=== PATIENT | female | born 1985 | race Caucasian/White ===

== ENCOUNTER 2019-10-28 08:58 | Emergency (ER) | payer SELFPAY ==
[2019-10-28 09:11] VITALS: BP 107/82; PULSE 94; RESP 18; TEMP 37.1; O2SAT 99; BMI 23.4
--- NOTE | 2019-10-28 09:14 | W.ED.DENTAL ---
HPI - Dental/Oral General: Chief complaint: Dental/Oral Stated complaint: Mouth pain Time Seen by Provider: 10/28/19 09:05 Source: patient Mode of arrival: ambulatory Limitations: no limitations History of Present Illness: HPI Narrative: Patient comes in with 2-day history of left side dental pain. Patient states that for the last 2 days she has had increasing pain and discomfort to her left upper and lower jaw area. Patient denies any difficulty swallowing or breathing. Patient appears well. Patient appears in moderate pain. Review of Systems General: Reports: 10 or more systems reviewed and unremarkable except in HPI and below ENMT: Reports: mouth pain and dental pain PFS ED PFSH: Statuses (acute, chronic, etc) shown below reflect problem list status as previously entered and may not be historically accurate Social History Smoking and tobacco status: current every day smoker Physical Exam Const: COMMON NORMALS: no apparent distress and oriented x3 GENERAL APPEARANCE: cooperative HENMT: COMMON NORMALS: normocephalic, external ears normal, EAC's normal, TM's normal bilaterally and external nose normal HEAD & SCALP: normal to inspection and normocephalic FACE & SINUS: normal facial exam NOSE: external nose normal GENERAL EAR: hearing not grossly impaired EXTERNAL EAR: Yes external ears normal EXTERNAL AUDITORY CANAL: EAC's normal TYMPANIC MEMBRANE: TM's normal bilaterally MOUTH: other (redness and swelling to left upper and lower gingival, severe dental decay) THROAT: posterior oropharynx normal Eye: COMMON NORMALS: PERRL and EOMs intact bilaterally PUPIL: Yes PERRL Neck/C-Spine: COMMON NORMALS: full ROM and no lymphadenopathy Lymph: LYMPHATIC: no lymphedema noted Chest: COMMONS NORMALS: inspection of chest normal and palpation of chest normal Resp: COMMON NORMALS: normal respiratory effort and clear to auscultation bilaterally AUSCULTATION: clear to auscultation bilaterally Cardio: COMMON NORMALS: regular rate and regular rhythm RATE: regular rate RHYTHM: regular rhythm GI: COMMON NORMALS: normal to inspection, nondistended, normoactive bowel sounds and non-tender : COMMON NORMALS: Yes no CVA tenderness BLADDER/KIDNEY EXAM: Yes no CVA tenderness Back/Pelvis: COMMON NORMALS: no CVA tenderness and thoracic and lumbar spine normal to inspection Extremity: COMMON NORMALS: normal to inspection GENERAL: No edema Neuro: COMMON NORMALS: oriented x3, moves all extremities and no focal motor deficits Psych: COMMON NORMALS: mental status grossly normal and cooperative Skin: COMMON NORMALS: no rashes or lesions noted GENERAL SKIN EXAM: no rashes or lesions noted Course Vital Signs: Vital signs: Vital Signs Temperature 98.7 F 10/28/19 09:11 Pulse Rate 94 10/28/19 09:11 Respiratory Rate 18 10/28/19 09:11 Blood Pressure 107/82 10/28/19 09:11 Pulse Oximetry 99 10/28/19 09:11 MDM - Dental/Oral MDM Narrative: Medical decision making narrative: Patient comes in today with mouth pain. On exam patient has severe dental decay with erythema and swelling of the gingiva on the left upper and lower molar area. Posterior pharynx is symmetrical and clear of swelling. Sublingual area is without swelling. No cervical lymphadenopathy is noted. Airway is intact and patient manages secretions well. Differential diagnosis includes retropharyngeal abscess, Axel's angina, dental abscess, odontalgia, dental caries, periodontal disease. Reviewed exam with patient recommended treatment with good oral care, antibiotics, and pain medication. Patient reports understanding agreed to plan and need for follow-up with dentist. Discharge Plan Discharge Patient Disposition: Home, Self-Care Clinical Impression: Dental caries, Dental abscess Condition: Stable Prescriptions: New clindamycin HCl 150 mg capsule 450 mg PO BID 7 Days Qty: 42 RF: 0 Lidocaine Viscous 2 % solution 10 ml MUCOUS MEM Q3H PRN (Reason: pain) Qty: 100 RF: 0 hydrocodone-acetaminophen 5-325 mg tablet 1 tab PO Q6H PRN (Reason: pain) Qty: 7 RF: 0 Referrals: Chriss Peter FNP-C [Family Provider] - Discharge Diet: Usual diet Discharge Activity: Increase activity as tolerated Patient Instructions: Dental Abscess (ED) Activity Restrictions/Additional Instructions: Good oral care Drink plenty of water with Medications Use acetaminophen and ibuprofen for further pain relief Follow-up with dentist for definitive treatment Return to ER for difficulty breathing or swallowing, with high fever and swelling Coding Level of Care Code ED Quality Control for Prudencio Romero
[2019-10-28 09:47] VITALS: BP 104/79; PULSE 94; RESP 16; O2SAT 95
== END 2019-10-28 09:48 | disposition home or self-care (01) ==
PROVIDERS: Emergency Provider Nurse Practitioner Family; Family Provider Nurse Practitioner
DX: K04.7 Periapical abscess without sinus (principal); K02.9 Dental caries, unspecified; F17.210 Nicotine dependence, cigarettes, uncomplicated
CPT/HCPCS: 99281; 99283

== ENCOUNTER 2020-09-12 17:36 | Emergency (ER) | payer SELFPAY ==
--- NOTE | 2020-09-12 17:44 | ED_ITS ---
HPI - Syncope General: Chief Complaint: Syncope Stated Complaint: SYNCOPE Time Seen by Provider: 09/12/20 17:38 Source: patient and EMS Mode of arrival: EMS Limitations: no limitations History of Present Illness: HPI narrative: 34-year-old female is here by EMS with spouse with syncopal event. States she is feeling weak and went back to her bedroom and passed out her kids came and knocked on the EMS door which was next-door and they came over gave patient Narcan and she is since been awake and alert. She states that she did smoke some drugs earlier and was unsure exactly what it was thought it was fake weed. She states she has had a toothache. Denies any chest pain or headache patient is alert and able answer all my questions patient was given Narcan roughly an hour and a half ago. Associated symptoms: Deny abdominal pain, fever(s), headache(s) or nausea Review of Systems Const: Denies: fever(s), chills, body aches or change in appetite Eyes: Denies: blurry vision or eye discomfort ENMT: Denies: throat pain or dental pain Card: Reports: syncope Resp: Denies: dyspnea GI: Denies: abdominal pain, nausea, vomiting or diarrhea : Denies: dysuria Musc: Denies: neck pain or back pain Skin/Breast: Denies: rash Neuro: Denies: headache(s) Psych: Denies: depression Devin/Lymph: Denies: easy bruising All/Imm: Denies: urticaria Physical Exam Const: COMMON NORMALS: no acute distress, patient oriented x3 and healthy appearing GENERAL APPEARANCE: disheveled HENMT: COMMON NORMALS: normocephalic and atraumatic HEAD & SCALP: normocephalic and atraumatic OTHER: Very poor dentition with left lower molar tenderness with no abscess or trismus Eye: COMMON NORMALS: Equal, round and reactive pupils present and EOMs intact bilaterally PUPIL: Yes Equal, round and reactive pupils present Neck/C-Spine: COMMON NORMALS: full ROM and supple Chest: COMMONS NORMALS: normal inspection of the chest and normal palpation of entire chest wall Resp: COMMON NORMALS: normal respiratory effort, No retractions, No use of accessory muscles and clear to auscultation bilaterally AUSCULTATION: clear to auscultation bilaterally Cardio: COMMON NORMALS: regular rate, regular rhythm and No murmurs present (Cardio) RATE: regular rate RHYTHM: regular rhythm GI: COMMON NORMALS: Normal to inspection, nondistended, normoactive bowel sounds present, Soft to palpation, non-tender and no masses PALPATION: Yes So ft to palpation Extremity: COMMON NORMALS: normal to inspection and full ROM Neuro: COMMON NORMALS: patient oriented x3, moves all extremities and no focal motor deficits Psych: COMMON NORMALS: mental status grossly normal, Normal thought process present and cooperative THOUGHT PROCESS: Normal thought process present Skin: COMMON NORMALS: no rashes or lesions noted and no wounds GENERAL SKIN EXAM: no rashes or lesions noted Course Vital Signs: Vital signs: Vital Signs Temperature 98.1 F 09/12/20 18:01 Pulse Rate 99 09/12/20 19:12 Respiratory Rate 18 09/12/20 18:01 Blood Pressure 102/64 09/12/20 19:12 Pulse Oximetry 97 09/12/20 19:12 MDM - Syncope MDM Narrative: Medical decision making narrative: Estrellita presents after a syncopal event likely due to marijuana use. She has been awake and alert and well-appearing here. Blood work here is all normal. She has a toothache as well and we will start her on antibiotics along with Naprosyn. She is to follow-up with PCP and return if worsening. Lab Data: Labs: Lab Results 09/12/20 09/12/20 09/12/20 Range/Units 17:47 17:47 17:55 WBC 10.0 (4.0-10.0) 10^3/ uL RBC 4.14 (4.1-5.3) 10^6/u L Hgb 12.8 (11.5-15.3) g/dL Hct 39.3 (37.0-47.0) % MCV 94.9 (81-99) fL MCH 30.9 (28.0-34.0) pg MCHC 32.6 (30.0-36.0) g/dL RDW 12.9 (12.1-15.1) % Plt Count 258 (130-400) 10^3/c mm MPV 10.2 (7.4-10.4) fL Neut % (Auto) 83.9 % Lymph % (Auto) 11.4 % [place] % (Auto) 3.7 % Eos % (Auto) 0.5 % Baso % (Auto) 0.2 % Neut # (Auto) 8.38 H (1.8-7.7) 10^3/u L Lymph # (Auto) 1.1 (0.8-4.8) 10^3/u L [place] # (Auto) 0.4 (0.2-0.9) 10^3/u L Eos # (Auto) 0.1 (0.0-0.8) 10^3/u L Baso # (Auto) 0.0 (0.0-0.1) 10^3/u L Nucleated RBC % (a uto) 0 % Nucleated RBCs # 0.0 /100WBC Sodium (136-145) mmol/L Potassium (3.5-5.1) mmol/L Chloride (98-107) mmol/L Carbon Dioxide (22-29) mmol/L Anion Gap (5-19) BUN (6-20) mg/dL Creatinine (0.5-0.9) mg/dL GFR Calculation (90-130) mL/min Glucose (65-115) mg/dL Calculated Osmolal ity (285-295) mOsm/k g Calcium (8.5-10.5) mg/dL HCG, Qual Negative (Negative) Urine Opiates Scre en Negative (Negative) ng/mL Ur Barbiturates Sc reen Negative (Negative) ng/mL Ur Phencyclidine S crn Negative (Negative) ng/mL Ur Amphetamines Sc reen Negative (Negative) ng/mL U Benzodiazepines Scrn Negative (Negative) ng/mL Urine Cocaine Scre en Negative (Negative) ng/mL U Marijuana (THC) Screen Positive H (Negative) ng/mL 12// Range/Units 17:55 WBC (4.0-10.0) 10^3/ uL RBC (4.1-5.3) 10^6/u L Hgb (11.5-15.3) g/dL Hct (37.0-47.0) % MCV (81-99) fL MCH (28.0-34.0) pg MCHC (30.0-36.0) g/dL RDW (12.1-15.1) % Plt Count (130-400) 10^3/c mm MPV (7.4-10.4) fL Neut % (Auto) % Lymph % (Auto) % [place] % (Auto) % Eos % (Auto) % Baso % (Auto) % Neut # (Auto) (1.8-7.7) 10^3/u L Lymph # (Auto) (0.8-4.8) 10^3/u L [place] # (Auto) (0.2-0.9) 10^3/u L Eos # (Auto) (0.0-0.8) 10^3/u L Baso # (Auto) (0.0-0.1) 10^3/u L Nucleated RBC % (a uto) % Nucleated RBCs # /100WBC Sodium 138 (136-145) mmol/L Potassium 3.4 L (3.5-5.1) mmol/L Chloride 101 (98-107) mmol/L Carbon Dioxide 28 (22-29) mmol/L Anion Gap 12.4 (5-19) BUN 5 L (6-20) mg/dL Creatinine 0.5 (0.5-0.9) mg/dL GFR Calculation 141.2 H (90-130) mL/min Glucose 116 H (65-115) mg/dL Calculated Osmolal ity 284 L (285-295) mOsm/k g Calcium 9.4 (8.5-10.5) mg/dL HCG, Qual (Negative) Urine Opiates Scre en (Negative) ng/mL Ur Barbiturates Sc reen (Negative) ng/mL Ur Phencyclidine S crn (Negative) ng/mL Ur Amphetamines Sc reen (Negative) ng/mL U Benzodiazepines Scrn (Negative) ng/mL Urine Cocaine Scre en (Negative) ng/mL U Marijuana (THC) Screen (Negative) ng/mL EKG Data^: EKG 1: Attestation: I personally reviewed and interpreted this EKG as follows: EKG interpretation date: 09/12/20 EKG interpretation time: 18:40 Interpretation: nsr hr [address] or t wave abnormalities qrs 106 qtc 415 Discharge Plan Discharge Patient Disposition: Home Clinical Impression: Tooth ache, Syncope Condition: Stable Prescriptions: New Keflex 500 mg capsule 500 mg PO Q6H 7 Days Qty: 28 RF: 0 Naprosyn 500 mg tablet 500 mg PO BID PRN (Reason: pain) Qty: 20 RF: 0 Discharge Orders: Discharge ED (Routine); Ordered 09/12/20 Ordered By: Betty Stephenson Referrals: Chriss Peter, BUSINESS PROCESS ASSOCIATE-C [Primary Care Provider] - Discharge Diet: Advance as tolerated Discharge Activity: Resume usual activity Patient Instructions: Syncope (ED), Toothache (ED) Coding Level of Care Code ED Test Department Helper for Chg Fwd Exam Comprehensive
[2020-09-12 18:01] VITALS: BP 100/70; PULSE 107; RESP 18; TEMP 36.7; O2SAT 98; BMI 20.7
[2020-09-12] MEDS: sodium chloride 0.9% 1,000 ML 999 ML IV (18:12)
[2020-09-12 18:18] LABS: HCG Qualitative Urine. Negative (Negative)
[2020-09-12 18:19] LABS: Basophils % 0.2 %; Eosinophils # 0.1 10^3/uL (0.0-0.8); Eosinophils % 0.5 %; Hematocrit 39.3 % (37.0-47.0); Hemoglobin 12.8 g/dL (11.5-15.3); Lymphocytes # 1.1 10^3/uL (0.8-4.8); Lymphocytes % 11.4 %; Mean Corpuscular HGB Conc 32.6 g/dL (30.0-36.0); Mean Corpuscular Hemoglobin 30.9 pg (28.0-34.0); Mean Corpuscular Volume 94.9 fL (81-99); Mean Platelet Volume 10.2 fL (7.4-10.4); Monocytes # 0.4 10^3/uL (0.2-0.9); Monocytes % 3.7 %; Neutrophils # 8.38 10^3/uL (1.8-7.7); Neutrophils % 83.9 %; Nucleated Red Blood Cells % 0 %; Platelet Count 258 10^3/cmm (130-400); Red Blood Count 4.14 10^6/uL (4.1-5.3); Red Cell Distribution Width 12.9 % (12.1-15.1)
[2020-09-12 18:25] LABS: Amphetamines Screen Urine Negative (Negative); Barbiturates Screen Urine Negative (Negative); Benzodiazepines Screen Urine Negative (Negative); Cocaine Screen Urine Negative (Negative); Opiate Screen Urine Negative (Negative); PCP Screen Urine Negative (Negative); THC Screen Urine Positive (Negative)
[2020-09-12 18:55] LABS: Anion Gap 12.4 (5-19); Blood Urea Nitrogen 5 mg/dL (6-20); Calcium 9.4 mg/dL (8.5-10.5); Carbon Dioxide 28 mmol/L (22-29); Chloride 101 mmol/L (98-107); Glomerular Filtration Rate 141.2 mL/min (90-130); Glucose 116 mg/dL (65-115); Osmolality Calculated 284 mOsm/kg (285-295); Potassium 3.4 mmol/L (3.5-5.1); Sodium 138 mmol/L (136-145)
[2020-09-12 19:12] VITALS: BP 102/64; PULSE 99; O2SAT 97
== END 2020-09-12 19:26 | disposition home or self-care (01) ==
PROVIDERS: Emergency Provider Emergency Medicine; PCP Nurse Practitioner
DX: R55 Syncope and collapse (principal); K08.89 Other specified disorders of teeth and supporting structures
CPT/HCPCS: 12345; 36415; 80048; 80306; 81025; 85025; 96360; 99282; 99283; J7030

== ENCOUNTER 2025-08-04 10:18 | Emergency (ER) | payer BC, SELFPAY ==
--- OUTSIDE RECORDS SUMMARY | 2024-07-26 03:00 | XMS_ITS ---
Author Organization [facility] Address [address] [place] [address] Care Team Providers Care Flight Software Test Engineer Name Role Phone AURELIA WHITLEY Primary Care Provider Unavaila ble Aurelia Whitley Unavailable [phone] Migration, Provider Unavailable Unavailable REASON FOR VISIT EMR-Skip Encounters Encounter Location Date Provider Diagnosis Migrated_Facility 0 0 07/26/2024 Provider Migration Plan Of Treatment Medication Medication Name Sig Start Date Stop Date Notes Gabapentin 600 MG Tablet 1 Capsule Four times a Day Oral 04/02/2024 06/01/2024 buprenorphine-naloxone 8-2 mg sublingual film 1 Film Twice a Day 04/03/2024 05/03/2024 *Reord er from [facility] for eRx and Interaction Alerts* Progress Notes * Sudha MARROQUIN DDOB:[birth year] (39 yo F)Acc No.[id number]:07/26/2024 Patient: Sudha KWOK :1985 A ge:38 Y S ex:Female Address:[address] [place] [address] * Refills Stop Gabapentin Tablet, 600 MG, Oral, 1 Capsule Four times a Day Stop buprenorphine-naloxone 8-2 mg sublingual film, 1 Film Twice a Day Subjective: * Chief Complaints: * E MR-Skip * * Date:
--- OUTSIDE RECORDS SUMMARY | 2024-07-27 03:00 | XMS_ITS ---
Author Organization [facility] Address [address] [place] [id number] Care Team Providers Care Hot Man Name Role Phone AURELIA ESPINOSA Primary Care Provider Unavaila ble AditijonnyAurelia Unavailable [phone] Migration, Provider Unavailable Unavailable Allergies Allergen (clinical drug ingredient) Drug/Non Drug Allergy documented on EMR Reaction Allergy Type Onset Date Status codeine Codeine Sulfate Unknown Drug Allergy A ctive REASON FOR VISIT EMR-[facility] Medications Medication SIG (Take, Route, Frequency, Duration) Notes Start Date End Date Status Gabapentin *Pick strength-f orm from [facility] for eRX* Active Social History Social History Additional Details Category Social Info Options Details Migrated Social History Migrated Social History Smoking - 1 PPD, Smoking status (MU) - Current every day smoker Encounters Encounter Location Date Provider Diagnosis Migrated_Facility 0 0 07/27/2024 Provider Migration Plan Of Treatment No Information Progress Notes * Sudha MARROQUIN DDOB:[birth year] (39 yo F)Acc No.[id number]:07/27/2024 Patient: Denia KWOKmelani Oneil :1985 A ge:38 Y S ex:Female Address:[place] [address] Subjective: * Chief Complaints: * E MR-Skip * Medical History: Cancer, K idney infection, * Surgical History: Knee Surgery Tubal ligation * Family History: M igrated Family History: : Cancer, c hronic pain, D iabetes, D rug addiction, H eart disease. * Social History: M igrated Social History: M igrated Social History: Smoking - 1 PPD, S moking status (MU) - Current every day smoker. * Medications: T akingGabapentin , Notes to Pharmacist: *Pick strength-form from [facility] for eRX*Taking Gabapentin , Notes to Pharmacist: *Pick strength-form from [facility] for eRX* * Allergies: C odeine Sulfate: Allergy * * Date:
--- OUTSIDE RECORDS SUMMARY | 2025-07-15 03:20 | XMS_ITS ---
Author Organization [facility] Address [address] [place] [address] Care Team Providers Care Converter Operator Name Role Phone AURELIA WHITLEY Primary Care Provider Unavaila Aurelia Zazueta Unavailable [phone] REASON FOR VISIT PAP, PT Needs Depression Screen!, Pt needs tobacco cessation counseling., Pt's Influenza Vaccination status needs to be documented under Preventive Medicine. Encounters Encounter Location Date [facility] [address] [address] 07/15/2025 Aurelia Whitley Plan Of Treatment No Information Progress Notes * Doretha MARROQUINine DDOB:[birth year] (39 yo F)Acc No.[id number]:07/15/2025 Progress Notes Patient: Sudha Cota Provider: Sandra Whitley APRN :1985 A ge:39 Y S ex:Female Date:07/15/2025 Address:[facility] [address] [facility] Pcp:AURELIA WHITLEY Subjective: * Chief Complaints: * P APPT Needs Depression Screen!Pt needs tobacco cessation counseling.Pt's Influenza Vaccination status needs to be documented under Preventive Medicine. Plan: * Procedure Codes: 9 9406 BEHAV CHNG SMOKING 3-10 MIN * Preventive Medicine: Screenings: C ERVICAL CANCER SCREENING: Cancer screening cervical (age 21-64)?Annual pap smear Date scheduled: D EPRESSION SCREENING: Screening completed: * T OBACCO USE SCREENING: (Please document on Smart Form in Social History to meet measure. No mapping from this section.) * V ACCINATIONS: Influenza vaccinations: * Counseling: N utrition/Physical Activity/Smoking/Depression Counseled the Patient on tobacco use; cessation provided * Billing Information: * Procedure Codes: 44000 BEHAV CHNG SMOKING 3-10 MIN. Care Plan Details* * Electronic signature of Abbie Whitley APN on 08/04/2025 at 10:44 AM OCCUPATIONAL HEALTH NURSING DIRECTOR Sign off status: Pending * Provider: Sandra Whitley APRN Date: Generated for Alannah alba/Nupur/Jossitting on: 10/04/2024 10:44 AM OCCUPATIONAL HEALTH NURSING DIRECTOR
[2025-08-04 10:31] VITALS: BP 106/71; PULSE 83; TEMP 36.8; O2SAT 97
--- NOTE | 2025-08-04 10:37 | W.ED.DENTAL ---
HPI - Dental/Oral General: Chief complaint: Dental/Oral Stated complaint: mouth pain, swelling, sore throat Time Seen by Provider: 08/04/25 10:28 Source: patient Mode of arrival: ambulatory Limitations: no limitations History of Present Illness: 39-year-old female states she been having left lower dental pain going on for 2 to 3 days. States she has a history of poor dentition along with dental infections in the past. She denies any trouble swallowing states she is also had a sore throat with some nausea patient's had sick contacts here with her kids with same sore throat. She rates her pain a 6 out of 10 Related Data Previous Rx's ?Medication ?Instructions ?Recorded hydrocodone 5 mg-acetaminophen 325 1 tab PO Q6H PRN pain #7 tabs 10/28/ mg tablet lidocaine HCl 2 % mucosal solution 10 ml mucous membrane Q3H PRN pain 10/28/19 (Lidocaine Viscous) #100 mL naproxen 500 mg tablet (Naprosyn) 500 mg PO BID PRN pain #20 tabs 09/12/ cephalexin 500 mg capsule 500 mg PO TID 7 days #21 caps 08/04/25 naproxen 500 mg tablet (Naprosyn) 500 mg PO BID PRN pain #20 tabs 08/04/25 Allergies Allergy/AdvReac Type Severity Reaction Status Date / Time codeine Allergy ALGY-Hives Verified 08/04/25 10:34 Review of Systems ENMT: Reports: throat pain [facility] ED PFSH: Social History Smoking and tobacco/nicotine status: current every day tobacco/nicotine user Physical Exam Const: COMMON NORMALS: no acute distress, patient oriented x3 and healthy appearing HENMT: COMMON NORMALS: normocephalic and atraumatic HEAD & SCALP: normocephalic and atraumatic MOUTH: Normal oral and palatal mucosa present THROAT: posterior oropharynx normal OTHER: Poor dentition noted tenderness left lower molar some erythema no abscess no trismus handling secretions well Neck/C-Spine: COMMON NORMALS: full ROM and supple Chest: COMMONS NORMALS: normal inspection of the chest Resp: COMMON NORMALS: normal respiratory effort Cardio: COMMON NORMALS: regular rate RATE: regular rate Extremity: COMMON NORMALS: normal to inspection and full ROM Neuro: COMMON NORMALS: patient oriented x3, moves all extremities and no focal motor deficits Psych: COMMON NORMALS: mental status grossly normal, Normal thought process present and cooperative THOUGHT PROCESS: Normal thought process present Skin: COMMON NORMALS: no rashes or lesions noted and no wounds GENERAL SKIN EXAM: no rashes or lesions noted Course Vital Signs: Vital signs: Vital Signs Temperature 98.3 F 08/04/25 10:31 Pulse Rate 83 08/04/25 10:31 Blood Pressure 106/71 08/04/25 10:31 Pulse Oximetry 97 08/04/25 10:31 Oxygen Delivery Me thod Room Air 08/04/25 10:31 MDM - Dental/Oral Medical Decision Making Patient presents here with left lower dental pain along with sore throat. Exam here showed no signs of abscess she has no trismus she has no signs of retropharyngeal or peritonsillar abscess. She is handling her secretions well here. Will prescribe her Keflex along with Naprosyn informed her she needs to follow-up with a dentist return if worsening she understands agrees to plan. Medical Records I reviewed the patient's medical records. No radiology studies performed this visit Discharge Plan Discharge Patient Disposition: Home Clinical Impression: Toothache Condition: Stable Prescriptions: New cephalexin 500 mg capsule 500 mg PO TID 7 Days Qty: 21 0RF naproxen [Naprosyn] 500 mg tablet 500 mg PO BID PRN (Reason: pain) Qty: 20 0RF No Action Naprosyn 500 mg tablet 500 mg PO BID PRN (Reason: pain) Qty: 20 0RF Lidocaine Viscous 2 % solution 10 ml MUCOUS MEM Q3H PRN (Reason: pain) Qty: 100 0RF Rx Instructions: hold in area of mouth until relief then spit out hydrocodone-acetaminophen 5-325 mg tablet 1 tab PO Q6H PRN (Reason: pain) Qty: 7 0RF Discharge Orders: Discharge ED (Routine); Ordered 08/04/25 Ordered By: Betty Stephenson Referrals: Aurelia Whitley APN [Primary Care Provider, Family Practice] - 4-7 days Discharge Diet: Advance as tolerated Discharge Activity: Resume usual activity Patient Instructions: Toothache (ED) Print Language: Romanian Coding Level of Care Code ED Stage Director for Prudencio Romero
[2025-08-04] MEDS: ondansetron hcl ODT 4 mg Tab PO (10:50)
[2025-08-04 11:07] LABS: Rapid Strep A Test Negative (Negative)
[2025-08-04 11:31] LABS: Respiratory Syncytial Virus Ce NEGATIVE (Negative); SARS-CoV-2 PCR NEGATIVE (Negative)
== END 2025-08-04 10:50 | disposition home or self-care (01) ==
PROVIDERS: Emergency Provider Emergency Medicine; PCP Nurse Practitioner Family
DX: K08.89 Other specified disorders of teeth and supporting structures (principal); Z72.0 Tobacco use
CPT/HCPCS: 87081; 87637; 87880; 99283; J9999; Q0162